=== PATIENT | male | born 2000 | race Caucasian/White ===

== ENCOUNTER → 2021-09-19 13:09 | Outpatient (BNVA) | payer MEDICARE, SELFPAY | PROVIDERS: Visit Provider Internal Medicine | DX: Z13.89 Encounter for screening for other disorder (principal) ==

== ENCOUNTER → 2021-09-25 11:29 | Outpatient (REF) | payer BC, SELFPAY ==
--- NOTE | 2021-09-25 11:36 | CA_ITS ---
Transthoracic Echocardiogram Patient (Last, First, Middle): Shukri Ochoa M Gender: Male Date of : 2000 Age: 21 Procedure Date: 09/25/2021 Procedure Type: Transthoracic Echocardiogram Location: OP Height: 182.88 cm Weight: 138.35 kg BSA: 2.55 m2 Heart Rate: bpm BP: 136 / 80 mmHg Heel Attacher: BYRON Referring MD: Tyrone Gudino MD Shot Grinder Operator: Marlon Huerta MD Symptoms: R94.31 - Abnormal electrocardiogram [ECG] [EKG] Study Quality: Fair ECG Rhythm: Sinus Conclusions: - Essentially normal study with the exception of mild LVH Findings Left Ventricle Normal left ventricular size and systolic function. There is mildly increased left ventricular wall thickness. The visually estimated ejection fraction is between 60-65%. Spectral Doppler is indicative of a normal filling pattern. Right Ventricle Normal right ventricular cavity size and systolic function. Atria The left atrium is normal in size. Interatrial shunt cannot be excluded. The right atrium is normal in size. Aortic Valve The aortic valve structure and function is likely normal. There is no aortic valve stenosis. There is no aortic valve regurgitation. Mitral Valve Normal mitral valve structure and function. There is no mitral valve regurgitation. There is no mitral valve stenosis. Pulmonic Valve The pulmonic valve was not well visualized. Tricuspid Valve Likely normal tricuspid valve structure and function. There is trace tricuspid valve regurgitation. The right ventricular systolic pressure is normal. The right ventricular systolic pressure is 13 mmHg. Normal right atrial pressure. There is no evidence of pulmonary hypertension. Great Vessels All visible segments of the aorta are normal in size. The pulmonary artery was not well visualized. Venous The inferior vena cava is normal in size and collapses greater than 50% with inspiration. Pericardium/Pleural There is no evidence of pericardial effusion. Prior Study Comparison No prior study available for comparison. Measurements 2D Linear Measurements IVSd: 1.22 0.6-0.9/0.6-1.0 cm LVIDd: 4.81 3.9-5.3/4.2-5.9 cm LVIDd Index: 1.89 2.4-3.2/2.2-3.1 cm/m2 LVIDs: 2.72 2.0-3.6 cm LVPWd: 1.24 0.7-1.1 cm Ao Root: 3.50 2.1-3.5 cm LA Diam: 3.90 2.7-3.8/3.0-4.0 cm LAIDs Index: 1.53 1.5-2.3 cm/m2 LV Mass: 283.87 67-162/88-224 g LV Mass Index: 111.32 43-95/49-115 g/m2 LVOT Diam: 2.20 3.0+(-)1.3 cm 2D Systolic Function EF 4C: 60.20 >55% EF 2C: 55.40 >55% EF BiP: 59.00 >55% Mitral Valve MV Pk E: 0.69 MV PK A: 0.49 MV Decel Time: 143.00 E/A: 1.40 E'Lateral: 12.40 E'Medial: 8.70 E/E' Med: 7.90 E/E' Lat: 5.60 PHT: 42.00 MVA PHT: 5.24 Decel Ross: 4.84 Aortic Valve AoV Pk Gerardo: 1.31 AoV Mn Gerardo: 0.93 AoV VTI: 0.25 AoV Pk Grad: 7.00 Aov Mn Grad: 4.00 BRANDY Cont.VTI: 3.04 LVOT LVOT Pk Gerardo: 1.00 LVOT Mn Gerardo: 0.64 LVOT VTI: 0.20 LVOT Pk Grad: 4.00 LVOT Mn Grad: 2.00 LVOT Diam: 2.20 LVOT Area: 3.80 Diastolic Function MV Pk E: 0.69 MV Pk A: 0.49 E/A: 1.40 E'Medial: 8.70 E/E' Med: 7.90 E' Laterial: 12.40 E/E' Lat: 5.60 Tricuspid Valve TR Pk Gerardo: 1.60 TR Pk Grad: 10.00 RA Press: 3.00 RVSP: 13.00 Great Vessels Aorta Ao Root-2D: 3.50 2.0-3.7 cm Ao Asc: 2.90 2.1-3.4 cm Pulmonary Valve PV Pk Gerardo: 1.13 Peak PV Grad: 5.00 Updated in Other Vendor System with Status of Final Marlon Huerta MD electronically signed on 09/26/2021 11:17:34 AM with status of Final
== END ==
LOC: HO.CARD 11:29
PROVIDERS: Visit Provider Internal Medicine
DX: Z02.89 Encounter for other administrative examinations (principal); R94.31 Abnormal electrocardiogram [ECG] [EKG]
CPT/HCPCS: 93306; 99202